=== PATIENT | female | born 1940 | race Caucasian/White ===

== ENCOUNTER 2020-01-04 12:55 | Outpatient (RCR) | payer MEDICARE, SELFPAY | END 2020-04-03 23:59 | disposition home or self-care (01) | LOC: ANHDMC 12:55 | PROVIDERS: Visit Provider Internal Medicine | DX: E11.65 Type 2 diabetes mellitus with hyperglycemia (principal); Z71.89 Other specified counseling | CPT/HCPCS: G0108 ==

== ENCOUNTER 2020-06-13 10:38 | Outpatient (RCR) | payer MEDICARE, SELFPAY | END 2020-06-13 13:25 | disposition home or self-care (01) | LOC: ANHDMC 10:38 | PROVIDERS: Referring Provider Internal Medicine; Visit Provider Internal Medicine | DX: E11.65 Type 2 diabetes mellitus with hyperglycemia (principal); Z71.89 Other specified counseling | CPT/HCPCS: G0108 ==

== ENCOUNTER 2020-10-10 12:22 | Outpatient (CLI) | payer MEDICARE, SELFPAY ==
--- NOTE | ~2020-10-10 | US_ITS ---
EXAMINATION: US thyroid DATE: 10/10/2020 13:09 INDICATION: Hypothyroidism. TECHNIQUE: Multiple ultrasound images of the thyroid were obtained. COMPARISON: None. FINDINGS: The right thyroid lobe measures 3.7 x 1.3 x 1.5 cm. The left thyroid lobe measures 3.4 x 1.3 x 1.5 c m. The thyroid demonstrates diffusely heterogeneous echogenicity with coarsened echotexture. Vascula rity is normal. No discrete nodule. IMPRESSION: 1. Heterogeneous thyroid, likely chronic lymphocytic (Ross) thyroiditis. Reviewed, dictated and finalized at location B.
== END 2020-10-10 12:23 | disposition home or self-care (01) ==
PROVIDERS: Visit Provider Internal Medicine Endocrinology, Diabetes & Metabolism
DX: E03.9 Hypothyroidism, unspecified (principal); E04.9 Nontoxic goiter, unspecified; R13.10 Dysphagia, unspecified
CPT/HCPCS: 76536